=== PATIENT | female | born 1990 | race African-American/Black ===

== ENCOUNTER 2016-12-08 18:35 | Emergency (ER) | payer BC, OTHER ==
[2016-12-08] MEDS ORDERED: Ibuprofen 800 MG TAB ONE (18:59)
== END 2016-12-08 19:00 | disposition home or self-care (01) ==
LOC: NAV ERS 18:35
DX: R10.30 Lower abdominal pain, unspecified (principal)
CPT/HCPCS: 99283

== ENCOUNTER 2022-01-25 19:01 | Emergency (ER) | payer MEDICAID, OTHER, SELFPAY ==
[2022-01-25 19:46] LABS: #Basophils 0.1 thou/uL (0.0-0.2); #Eosinphils 0.1 thou/uL (0.0-0.7); #Monocytes 0.7 thou/uL (0.11-0.59); #Neutrophils 7.1 thou/uL (1.40-6.50); %Eosinophils 0.6 % (0.0-10.0); %Monocytes 7.1 % (0.0-10.0); %Neutrophils 71.4 % (42.0-75.0); Hemoglobin 13.1 g/dL (12.0-16.0); Mean Corpuscular HGB CONC 31.9 g/dL (32.0-36.0); Mean Corpuscular Hemoglobin 27.8 pg (27.0-31.0); Mean Corpuscular Volume 87.2 fL (78.0-98.0); Mean Platelet Volume 8.9 fL (7.4-10.4); Platelet Count 251 thou/uL (130-400); RBC Distribution Width 11.7 % (11.5-14.5); Red Blood Cell (RBC) Count 4.73 mill/uL (4.20-5.40)
[2022-01-25] MEDS ORDERED: Sodium Chloride 0.9% 1,000 ML ONE (19:50)
[2022-01-25 20:00] LABS: Bilirubin Negative (Negative); Blood, Urine Trace (Negative); Clarity Cloudy (Clear); Glucose, Urine (Dipstick) Negative (Negative); Ketone, Urine Negative (Negative); Leukocyte Large (Negative); Nitrite Negative (Negative); Protein, Urine (Dipstick) Negative (Neg-Trace); pH, Urine 6.5 (5.0-9.0)
[2022-01-25 20:03] LABS: Bacteria/HPF 3+ HPF (None Seen); RBC/HPF 0-3 HPF (0-3)
[2022-01-25 20:04] LABS: ALT (SGPT) 39 U/L (8-55); AST (SGOT) 24 U/L (5-34); Alkaline Phosphatase 132 U/L (40-110); Anion Gap 14 mmol/L (10-20); BUN (Urea Nitrogen) 9 mg/dL (7.0-18.7); Bilirubin, Total 0.5 mg/dL (0.2-1.2); Calc. Creatinine Clearance 0 mL/min (70-130); Calcium 8.8 mg/dL (7.8-10.44); Carbon Dioxide 21 mmol/L (22-29); Chloride 102 mmol/L (98-107); Estimated GFR 124; Globulin 3.7 g/dL (2.4-3.5); Glucose 110 mg/dL (70-105); Potassium 3.4 mmol/L (3.5-5.1); Protein, Total 6.7 g/dL (6.0-8.3); Sodium 134 mmol/L (136-145)
[2022-01-25 21:08] LABS: Bilirubin Negative (Negative); Blood, Urine Negative (Negative); Clarity Clear (Clear); Glucose, Urine (Dipstick) Negative (Negative); Ketone, Urine Negative (Negative); Leukocyte Trace (Negative); Nitrite Negative (Negative); Protein, Urine (Dipstick) Negative (Neg-Trace)
[2022-01-25 22:05] LABS: Bacteria/HPF 2+ HPF (None Seen); RBC/HPF 0-3 HPF (0-3)
[2022-01-25] MEDS ORDERED: cefTRIAXone\\ROCEPHIN 1 GM VIAL ONE (22:17)
[2022-01-25] MEDS ORDERED: Sodium Chloride 0.9% 100 ML ONE (22:17)
== END 2022-01-25 22:55 | disposition home or self-care (01) ==
LOC: NAV ERS 19:01
DX: O23.43 Unspecified infection of urinary tract in pregnancy, third trimester (principal); N39.0 Urinary tract infection, site not specified; Z3A.30 30 weeks gestation of pregnancy
CPT/HCPCS: 51701; 80053; 81003; 81015; 85025; 87077; 87086; 96361; 96365; J0696; J3490; J7050

== ENCOUNTER 2022-12-05 09:11 | Emergency (ER) | payer OTHER ==
[2022-12-05] MEDS ORDERED: Metoclopramide HCl 10 MG/2 ML VIAL ONE (09:47)
[2022-12-05] MEDS ORDERED: Sodium Chloride 0.9% 1,000 ML ONE (09:47)
[2022-12-05 10:18] LABS: Anion Gap 12 mmol/L (10-20); BUN (Urea Nitrogen) 15 mg/dL (7.0-18.7); Calc. Creatinine Clearance 0 mL/min (70-130); Carbon Dioxide 20 mmol/L (22-29); Chloride 106 mmol/L (98-107); Estimated GFR 94; Glucose 102 mg/dL (70-105); Potassium 4.1 mmol/L (3.5-5.1); Sodium 134 mmol/L (136-145)
[2022-12-05 10:23] LABS: BHCG - Serum Negative (NEGATIVE); Pregs Control Bar Appear? YES (CONTROL BAR)
[2022-12-05] MEDS ORDERED: Ketorolac Tromethamine 30 MG/ML VIAL ONE (10:30)
[2022-12-05] MEDS ORDERED: methylPREDNISolone Sod Succ/PF 125 MG/2 ML VIAL ONE (10:53)
[2022-12-05 10:55] LABS: Bilirubin Negative (Negative); Blood, Urine Negative (Negative); Clarity Clear (Clear); Glucose, Urine (Dipstick) Negative (Negative); Ketone, Urine Negative (Negative); Leukocyte Small (Negative); Nitrite Negative (Negative); Protein, Urine (Dipstick) Negative (Neg-Trace); Specific Gravity, Urine 1.015 (1.005-1.030); Urobilinogen 0.2 mg/dL (Less than 2)
[2022-12-05 10:57] LABS: Bacteria/HPF Rare-Few HPF (None Seen); CAUTI Indications for Culture Pelvic or flank pain
[2022-12-05 10:58] LABS: Urine Culture Reflex No No
[2022-12-05 11:02] LABS: #Basophils 0.1 thou/uL (0.0-0.2); #Lymphocytes 0.3 thou/uL (1.20-3.40); #Monocytes 0.6 thou/uL (0.11-0.59); #Neutrophils 5.6 thou/uL (1.40-6.50); %Basophils 1.3 % (0.0-1.0); %Eosinophils 0.1 % (0.0-10.0); %Lymphocytes 4.3 % (21.0-51.0); %Monocytes 9.2 % (0.0-10.0); %Neutrophils 85.1 % (42.0-75.0); Hemoglobin 14.1 g/dL (12.0-16.0); Mean Corpuscular HGB CONC 31.8 g/dL (32.0-36.0); Mean Corpuscular Hemoglobin 27.7 pg (27.0-31.0); Mean Corpuscular Volume 86.9 fl (78.0-98.0); Mean Platelet Volume 8.5 fL (7.4-10.4); Platelet Count 226 10x3/uL (130-400); RBC Distribution Width 12.6 % (11.5-14.5); Red Blood Cell (RBC) Count 5.09 mill/uL (4.20-5.40); White Blood Cell (WBC) Count 6.6 10x3/uL (4.8-10.8)
== END 2022-12-05 11:00 | disposition home or self-care (01) ==
LOC: NAV ERS 09:11
DX: R51.9 Headache, unspecified (principal); Z20.822 Contact with and (suspected) exposure to COVID-19
CPT/HCPCS: 80048; 81001; 84703; 85025; 86140; 87081; 87430; 87635; 87804; 96374; 96375; J1885; J2765; J2930; J7050

== ENCOUNTER 2024-03-23 10:52 | Emergency (ER) | payer OTHER, SELFPAY ==
[2024-03-23] MEDS ORDERED: Ondansetron PF 4 MG/2 ML Vial ONE (11:10)
[2024-03-23] MEDS ORDERED: Sodium Chloride 0.9% 1,000 ML ONE (11:10)
[2024-03-23 11:22] LABS: #Basophils 0.1 thou/uL (0.0-0.2); #Lymphocytes 1.9 thou/uL (1.20-3.40); #Monocytes 0.5 thou/uL (0.11-0.59); #Neutrophils 4.1 thou/uL (1.40-6.50); %Eosinophils 0.5 % (0.0-10.0); %Lymphocytes 29.4 % (21.0-51.0); %Monocytes 7.5 % (0.0-10.0); %Neutrophils 61.6 % (42.0-75.0); Hematocrit 42.9 % (36.0-47.0); Hemoglobin 13.7 g/dL (12.0-16.0); Mean Corpuscular HGB CONC 31.9 g/dL (32.0-36.0); Mean Corpuscular Hemoglobin 28.6 pg (27.0-31.0); Mean Corpuscular Volume 89.8 fl (78.0-98.0); Platelet Count 313 10x3/uL (130-400); RBC Distribution Width 11.9 % (11.5-14.5); Red Blood Cell (RBC) Count 4.78 mill/uL (4.20-5.40); White Blood Cell (WBC) Count 6.6 10x3/uL (4.8-10.8)
[2024-03-23 11:27] LABS: Bilirubin Negative (Negative); Blood, Urine Negative (Negative); Clarity Clear (Clear); Glucose, Urine (Dipstick) Negative (Negative); Ketone, Urine Negative (Negative); Leukocyte Negative (Negative); Nitrite Negative (Negative); Protein, Urine (Dipstick) Negative (Neg-Trace); Specific Gravity, Urine 1.015 (1.005-1.030); Urobilinogen 0.2 mg/dL (Less than 2); pH, Urine 6.5 (5.0-9.0)
[2024-03-23 11:33] LABS: Bacteria/HPF None Seen HPF (None Seen); CAUTI Indications for Culture Dysuria,urgency,freq; RBC/HPF None Seen HPF (0-3); Squamous Epithelial 0-3 HPF (0-3); WBC/HPF None Seen HPF (0-3)
[2024-03-23 11:34] LABS: BHCG - Serum Negative (NEGATIVE); Pregs Control Bar Appear? YES (CONTROL BAR); Urine Culture Reflex No No
[2024-03-23 11:37] LABS: ALT (SGPT) 16 U/L (8-55); AST (SGOT) 14 U/L (5-34); Albumin 3.6 g/dL (3.5-5.0); Alkaline Phosphatase 47 U/L (40-110); Anion Gap 10 mmol/L (10-20); BUN (Urea Nitrogen) 20 mg/dL (7.0-18.7); Bilirubin, Total 0.4 mg/dL (0.2-1.2); Calc. Creatinine Clearance 0 mL/min (70-130); Calcium 9.4 mg/dL (7.8-10.44); Carbon Dioxide 26 mmol/L (22-29); Chloride 104 mmol/L (98-107); Estimated GFR 103; Globulin 3.5 g/dL (2.4-3.5); Glucose 97 mg/dL (70-105); Lipase 54 U/L (8-78); Potassium 4.8 mmol/L (3.5-5.1); Protein, Total 7.1 g/dL (6.0-8.3); Sodium 135 mmol/L (136-145)
[2024-03-23] MEDS ORDERED: Ketorolac Tromethamine 30 MG (1 mL) VIAL ONE (11:37)
== END 2024-03-23 12:20 | disposition home or self-care (01) ==
LOC: NAV ERS 10:52
DX: A08.4 Viral intestinal infection, unspecified (principal)
CPT/HCPCS: 80053; 81001; 83690; 84703; 85025; 96361; 96374; 96375; J1885; J2405; J7030